=== PATIENT | male | born 1985 | race Caucasian/White ===

== ENCOUNTER → 2018-03-26 | Outpatient (CLI) | payer BC ==
--- NOTE | 2018-03-26 16:03 | EST ---
EXERCISE STRESS DATE OF SERVICE: 03/26/2018 AGE: 32 SEX: M HT: 5'7" WT: 185 pounds PROTOCOL: STAGE: DURATION OF EXERCISE: 11:51 minutes HEART RATE REST: 80 BLOOD PRESSURE REST: 132/79 MAXIMUM HEART RATE ACHIEVED: 160 MAXIMUM BLOOD PRESSURE: 157/49 85% MPHR: 158 100% MPHR: 186 METS: 12.1 INDICATIONS: Hypertension. RESULTS: Baseline rhythm sinus mechanism. Rate of 80 normal axis and intervals. Normal electrocardiogram. Baseline blood pressure 132/79 mmHg. Patient exercised on [facility] protocol for 11 minutes 1 second reaching peak rate of 160 beats per minute which is equal 86 percent maximum predicted heart rate. Peak blood pressure 157/49. Test was terminated because of fatigued. There was no chest pain. Electrocardiograph monitoring revealed no evidence of diagnostic ischemic ST deviation. CONCLUSION: 1. Good exercise tolerance with normal electrocardiograph response to stress test. 2. No evidence of chest discomfort. MMODL / IJN: [id number] /
== END | disposition home or self-care (01) ==
LOC: RADNMMAIN 08:26
PROVIDERS: ATTEND Family Medicine
DX: I10 Essential (primary) hypertension (principal); Z88.1 Allergy status to other antibiotic agents
CPT/HCPCS: 93017

== ENCOUNTER → 2019-01-19 | Outpatient (CLI) | payer BC ==
--- NOTE | 2019-01-19 11:13 | XR ---
EXAMINATION TYPE: XR ribs RT w pa chest xray DATE OF EXAM: 01/19/2019 COMPARISON: NONE TECHNIQUE: PA and lateral views submitted. HISTORY: Pain FINDINGS: The lungs are clear and there is no pneumothorax, pleural effusion, or focal pneumonia. No overt rubi lure. IMPRESSION: 1. No acute process.
== END | disposition home or self-care (01) ==
LOC: RADXRYALE 10:07
PROVIDERS: ATTEND Nurse Practitioner
DX: S29.9XXA Unspecified injury of thorax, initial encounter (principal)